=== PATIENT | male | born 1990 | race Caucasian/White ===

== ENCOUNTER 2018-04-26 15:53 | Emergency (ER) | payer SELFPAY ==
[2018-04-26] MEDS ORDERED: ONDANSETRON HCL INJ/PF 4 MG/2 ML SDV IV ONE (18:14)
--- NOTE | 2018-04-26 18:23 | ER Document Report ---
ED Medical Screen (RME) - General Chief Complaint: Abdominal Pain Stated Complaint: ABDOMINAL PAIN Time Seen by Provider: 04/26/18 18:04 Notes: Patient is a 27-year-old male presents to the emergency department for generalized bilateral flank pain, nausea, vomiting, epigastric abdominal pain. Patient states pain started yesterday and he was seen at an outlying emergency room. States "they gave me Toradol and sent me home." Patient states he does have a history of kidney nephropathy and typically urinates a dark red color. States recently his urine has been a theodora color and malodorous. Patient states he also has pain in bilateral flanks, nausea, vomiting. GENERAL: Alert, interacts well. No acute distress. ABDOMEN: Soft, Non-distended. Bowel sounds present in all 4 quadrants. Generalized epigastric abdominal pain noted EXTREMITIES: Moves all 4 extremities spontaneously. No edema, normal radial and dorsalis pedis pulses bilaterally. No cyanosis. BACK: no cervical, thoracic, lumbar midline tenderness. No saddle anesthesia, n ormal distal neurovascular exam. Positive CVA tenderness noted bilaterally I have greeted and performed a rapid initial assessment of this patient. A comprehensive ED assessment and evaluation of the patient, analysis of test results and completion of the medical decision making process will be conducted by additional ED providers. TRAVEL OUTSIDE OF THE [place] IN LAST 30 DAYS: No - Related Data Allergies/Adverse Reactions: tramadol Adverse Reaction (Verified 04/26/18 16:01) Past Medical History - Past Medical History Cardiac Medical History: Reports: Hx Hypertension Renal/ Medical History: Denies: Hx Peritoneal Dialysis Physical Exam - Vital signs Vitals: Temp Pulse Resp BP Pulse Ox 98.1 F 64 16 138/97 H 98 04/26/18 16:02 04/26/18 16:02 04/26/18 16:02 04/26/18 16:02 04/26/18 16:02 Course - Vital Signs Vital signs: Temp Pulse Resp BP Pulse Ox 98.1 F 64 16 138/97 H 98 04/26/18 16:02 04/26/18 16:02 04/26/18 16:02 04/26/18 16:02 04/26/18 16:02
[2018-04-26 18:58] LABS: ABSOLUTE LYMPHOCYTES (AUTO) 0.5 10^3/uL (0.5-4.7); ABSOLUTE MONOCYTES (AUTO) 1.1 10^3/uL (0.1-1.4); BASOPHILS % (AUTO) 0.2 % (0-2); HEMATOCRIT 47.3 % (37.9-51.0); HEMOGLOBIN 16.6 g/dL (13.5-17.0); LYMPHOCYTES % (AUTO) 7.1 % (13-45); MEAN CORPUSCULAR HEMOGLOBIN 29.2 pg (27.0-33.4); MEAN CORPUSCULAR VOLUME 83 fl (80-97); MONOCYTES % (AUTO) 14.4 % (3-13); PLATELET COUNT 238 10^3/uL (150-450); RED BLOOD COUNT 5.67 10^6/uL (4.35-5.55); RED CELL DISTRIBUTION WIDTH 13.3 % (11.5-14.0); SEGMENTED NEUTROPHILS % (AUTO) 78.3 % (42-78); TOTAL CELLS COUNTED % (AUTO) 100 %; WHITE BLOOD COUNT 7.7 10^3/uL (4.0-10.5)
[2018-04-26 19:11] LABS: APPEARANCE,URINE SLIGHTLY-CLOUDY; BILIRUBIN,URINE NEGATIVE (NEGATIVE); COLOR,URINE AMBER; GLUCOSE, URINE NEGATIVE (NEGATIVE); KETONES,URINE 20 mg/dL (NEGATIVE); LEUKOCYTE ESTERASE,URINE NEGATIVE (NEGATIVE); NITRITE,URINE NEGATIVE (NEGATIVE); PROTEIN,URINE >=500 mg/dL (NEGATIVE); URINE SPECIFIC GRAVITY 1.024; UROBILINOGEN,URINE NEGATIVE mg/dL (<2.0)
[2018-04-26 19:16] LABS: ALANINE AMINOTRANSFERASE 47 U/L (21-72); ALBUMIN 5.2 g/dL (3.5-5.0); ALKALINE PHOSPHATASE 66 U/L (38-126); ANION GAP 14 (5-19); ASPARTATE AMINO TRANSFERASE 45 U/L (17-59); BILIRUBIN,DIRECT 0.3 mg/dL (0.0-0.4); BILIRUBIN,TOTAL 0.7 mg/dL (0.2-1.3); BLOOD UREA NITROGEN 19 mg/dL (7-20); CALCIUM 10.2 mg/dL (8.4-10.2); CARBON DIOXIDE 32 mmol/L (22-30); CHLORIDE 94 mmol/L (98-107); GLUCOSE 118 mg/dL (75-110); LIPASE 192.7 U/L (23-300); SODIUM 140.4 mmol/L (137-145); TOTAL PROTEIN 8.6 g/dL (6.3-8.2)
--- NOTE | 2018-04-26 20:04 | RADIOLOGY REPORT (SQ) ---
EXAM DESCRIPTION: U/S RETROPERITON (RENAL/AORTA) COMPLETED DATE/TIME: 04/26/2018 7:53 pm REASON FOR STUDY: BL flank pain/nephropathy COMPARISON: None. TECHNIQUE: Dynamic and static grayscale images acquired of the kidneys and bladder and recorded on P ACS. Additional selected color Doppler and spectral images recorded. LIMITATIONS: None. FINDINGS: RIGHT KIDNEY: Normal size. Normal echogenicity. No solid or suspicious masses. No hydronep hrosis. No calcifications. LEFT KIDNEY: Normal size. Normal echogenicity. No solid or suspicious masses. No hydronephrosis. No calcifications. BLADDER: Decompressed. OTHER FINDINGS: No other significant finding. IMPRESSION: No hydronephrosis. Decompressed bladder. TECHNICAL DOCUMENTATION: JOB ID: [id number] [place]-72 2010 [employer]- All Rights Reserved Reading location - IP/workstation name: [email or web address]
[2018-04-26] MEDS ORDERED: PROMETHAZINE HCL INJ 25 MG/1 ML VIAL IV ONE (21:01)
[2018-04-26] MEDS ORDERED: ACETAMINOPHEN 325 MG TABLET PO ONE (21:01)
--- NOTE | 2018-04-26 21:08 | ER Document Report ---
ED General - General Chief Complaint: Abdominal Pain Stated Complaint: ABDOMINAL PAIN Time Seen by Provider: 04/26/18 18:04 TRAVEL OUTSIDE OF THE [place] IN LAST 30 DAYS: No - HPI Notes: Patient is a 27-year-old male that presents to the emergency department for chief complaint of nausea vomiting and myalgia. Patient reports yesterday he started having diffuse body aches. He also reports "I have vomited 100 times". Patient states he has had intermittent sweats and chills but has not taken his temperature at home. He also endorses bilateral flank pain radiating down his back into his feet. The pain is achy and constant. He denies aggravating or relieving factors to his pain. He did not get an influenza vaccine this year. He does report cough and congestion. He denies any chest pain or difficulty breathing. Patient states he was seen in an outside the ED and diagnosed with viral illness. They gave him Ultram for his pain which he threw up. Patient reports history of hypertension and has not been on medication for the last few years. 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 He was previously seen at [facility] for his Buerger's but states he has not been following up for the last few years. Past Medical History: Buerger's disease Past Surgical History: Negative Social History: Reviewed in chart Family History: Reviewed and noncontributory for presenting illness Allergies: Reviewed, see documented allergy list. REVIEW OF SYSTEMS: CONSTITUTIONAL : No fever No chills No diaphoresis No recent illness EENT: No vision changes No congestion No sore throat CARDIOVASCULAR: No chest pain No palpitations RESPIRATORY: No shortness of breath No cough No difficulty breathing GASTROINTESTINAL: No abdominal pain nausea vomiting No diarrhea GENITOURINARY: No dysuria No hematuria No difficulty urinating MUSCULOSKELETAL: back pain No leg pain No arm pain SKIN: No rashes No lesions LYMPHATIC: No swollen, enlarged glands. NEUROLOGICAL: No lightheadedness No headache No weakness No paresthesias PSYCHIATRIC: No anxiety No depression PHYSICAL EXAMINATION: Vital signs reviewed, nursing noted reviewed. GENERAL: Well-appearing, well-nourished and in no acute distress. HEAD: Atraumatic, normocephalic. EYES: Eyes appear normal, extraocular movements intact, sclera anicteric, conjunctiva are normal. ENT: nares patent, oropharynx clear without exudates. Moist mucous membranes. NECK: Normal range of motion, supple without lymphadenopathy LUNGS: Breath sounds clear to auscultation bilaterally and equal. No wheezes rales or rhonchi. HEART: Regular rate and rhythm without murmurs ABDOMEN: Soft, nontender, normoactive bowel sounds. No rebound, guarding, or rigidity. No masses appreciated. EXTREMITIES: Nontender, good range of motion, no pitting or edema. NEUROLOGICAL: No focal neurological deficits. Moves all extremities spontaneously Motor and sensory grossly intact on exam. PSYCH: Normal mood, normal affect. SKIN: Warm, Dry, normal turgor, no rashes or lesions noted on exposed skin - Related Data Allergies/Adverse Reactions: tramadol Adverse Reaction (Verified 04/26/18 16:01) Past Medical History - Social History Smoking Status: Unknown if Ever Smoked Family History: Reviewed & Not Pertinent Patient has suicidal ideation: No Patient has homicidal ideation: No - Past Medical History Cardiac Medical History: Reports: Hx Hypertension Renal/ Medical History: Denies: Hx Peritoneal Dialysis Physical Exam - Vital signs Vitals: Temp Pulse Resp BP Pulse Ox 98.1 F 64 16 138/97 H 98 04/26/18 16:02 04/26/18 16:02 04/26/18 16:02 04/26/18 16:02 04/26/18 16:02 Course - Re-evaluation Re-evalutation: 04/26/18 21:06 Vitals reviewed. Nursing notes reviewed. Patient is well-appearing and in no acute distress. He was complaining of feeling "hot" at bedside, I took his temperature and it was 97.8. Patient's lab work is unremarkable. He has normal renal function. Renal ultrasound is also normal. He does have a significant amount of hematuria and proteinuria related to his Buerger's disease. Patient was given Zofran and Phenergan for his nausea in the ED. He was given Tylenol for his myalgias. His symptoms are consistent with viral illness. His abdominal exam is soft with no focal tenderness and I do not feel CT scan is currently indicated. Patient is requesting stronger pain medication and Ultram. I explained that opiate medications are not indicated in acute viral illnesses. I will prescribe Zofran so he is able to tolerate pain medicines prescribed by other physicians. He was advised to take Tylenol and stay well-hydrated. He will follow with primary care to further discuss his hypertension and Buerger's disease. Patient given return precautions and verbalized understanding. He is stable at discharge. Laboratory 04/26/18 04/26/18 04/26/18 18:37 18:37 18:37 WBC 7.7 RBC 5.67 H Hgb 16.6 Hct 47.3 MCV 83 MCH 29.2 MCHC 35.0 RDW 13.3 Plt Count 238 Seg Neutrophils % 78.3 H Lymphocytes % 7.1 L Monocytes % 14.4 H Eosinophils % 0.0 Basophils % 0.2 Absolute Neutrophils 6.0 Absolute Lymphocytes 0.5 Absolute Monocytes 1.1 Absolute Eosinophils 0.0 Absolute Basophils 0.0 Sodium 140.4 Potassium 4.0 Chloride 94 L Carbon Dioxide 32 H Anion Gap 14 BUN 19 Creatinine 1.01 Est GFR ( Amer) > 60 Est GFR (Non-Af Amer) > 60 Glucose 118 H Calcium 10.2 Total Bilirubin 0.7 Direct Bilirubin 0.3 Neonat Total Bilirubin Not Reportable Neonat Direct Bilirubin Not Reportable Neonat Indirect Bili Not Reportable AST 45 ALT 47 Alkaline Phosphatase 66 Total Protein 8.6 H Albumin 5.2 H Lipase 192.7 Urine Color KIRSTEN Urine Appearance SLIGHTLY-CLOUDY Urine pH 6.0 Ur Specific [place] 1.024 Urine Protein >=500 H Urine Glucose (UA) NEGATIVE Urine Ketones 20 H Urine Blood LARGE H Urine Nitrite NEGATIVE Urine Bilirubin NEGATIVE Urine Urobilinogen NEGATIVE Ur Leukocyte Esterase NEGATIVE Urine WBC (Auto) 1 Urine RBC (Auto) >182 Squamous Epi Cells Auto <1 Urine Mucus (Auto) RARE Urine Ascorbic Acid NEGATIVE Renal Ultrasound 04/26/18 18:14 IMPRESSION: No hydronephrosis. Decompressed bladder. - Vital Signs Vital signs: Temp Pulse Resp BP Pulse Ox 98.1 F 64 16 138/97 H 98 04/26/18 16:02 04/26/18 16:02 04/26/18 16:02 04/26/18 16:02 04/26/18 16:02 - Laboratory Result Diagrams: 04/26/18 18:37 04/26/18 18:37 Laboratory results interpreted by me: 04/26/18 04/26/18 04/26/18 18:37 18:37 18:37 RBC 5.67 H Seg Neutrophils % 78.3 H Lymphocytes % 7.1 L Monocytes % 14.4 H Chloride 94 L Carbon Dioxide 32 H Glucose 118 H Total Protein 8.6 H Albumin 5.2 H Urine Protein >=500 H Urine Ketones 20 H Urine Blood LARGE H Discharge - Discharge Clinical Impression: Myalgia Hematuria Qualifiers: Hematuria type: gross Qualified Code(s): R31.0 - Gross hematuria Proteinuria Qualifiers: Proteinuria type: unspecified Qualified Code(s): R80.9 - Proteinuria, unspecified Nausea and vomiting Qualifiers: Vomiting type: unspecified Vomiting Intractability: non-intractable Qualified Code(s): R11.2 - Nausea with vomiting, unspecified Condition: Stable Disposition: HOME, SELF-CARE Instructions: Vomiting ([facility]), Hematuria ([facility]) Additional Instructions: Please return to the emergency department if you have any worsening, or concern of your symptoms. Please return to the emergency department if you develop chest pain, difficulty breathing, severe abdominal pain, or ongoing vomiting. Please follow-up with your primary care physician in 2-3 days and any other recommended physicians. If prescribed, take all medications as directed. If you have any questions or concerns do not hesitate to return the emergency department for evaluation. Please follow-up to get back on blood pressure medications. Please contact your post adoption coordinator to follow-up on your Buerger's disease Prescriptions: Ondansetron [Zofran Odt 4 mg Tablet] 1 tab PO Q4H PRN #15 tab.rapdis PRN Reason: For Nausea/Vomiting Forms: Elevated Blood Pressure Referrals: [facility] [Provider Group] - Follow up as needed
[2018-04-26 21:31] VITALS: BP 131/87
== END 2018-04-26 21:30 | disposition home or self-care (01) ==
LOC: ER 15:53
DX: M79.10 Myalgia, unspecified site (principal); R11.2 Nausea with vomiting, unspecified; R31.0 Gross hematuria; R80.9 Proteinuria, unspecified; I10 Essential (primary) hypertension
CPT/HCPCS: 99284; 96374; 96375; 36415; 83690; 85025; 80053; 81001; 76770; J2550; J2405